=== PATIENT | male | born 2000 | race Caucasian/White ===

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

== ENCOUNTER 2019-03-15 | Emergency (ER) | payer BC ==
[2019-03-15 09:49] LABS: IMMATURE GRANULOCYTES 0.1 % (0.0-5.0); MEAN CORPUSCULAR HGB 28.3 pG CALC (26.0-32.0); MEAN CORPUSCULAR HGB CONC 34.2 g/L CALC (32.0-36.0); NEUT# 3.72 thou/uL (1.82-7.42); RED BLOOD COUNT 5.3 mill/uL (4.70-6.10)
[2019-03-15 09:57] LABS: HEMATOCRIT 43.8 % (39.0-50.0); MEAN CELL VOLUME 82.6 fL CALC (80.0-100.0)
[2019-03-15 10:11] LABS: ALBUMIN 4.4 g/dL (3.2-5.0); ALKALINE PHOSPHATASE 66 u/l (38-126); ANION GAP 13 (6-22 (CALC)); BUN 23 mg/dL (8-21); BUN/CREATININE RATIO 35 (12-20 (CALC)); CARBON DIOXIDE 26 mmol/l (22-30); CHLORIDE 103 mmol/l (95-108); CPK 55 u/l (52-200); CREATININE 0.7 mg/dL (0.7-1.3); GFR > 60 ML/MIN (>=60 (CALC)); GFR FOR AFR.AMER. > 60 ML/MIN (>=60 (CALC)); POTASSIUM 4.4 mmol/l (3.5-5.1); SGOT/AST 16 u/l (17-59); SODIUM 138 mmol/l (137-146); TOTAL PROTEIN 7.2 g/dL (6.3-8.2)
[2019-03-15 10:23] LABS: BILIRUBIN, TOTAL 0.8 mg/dL (0.0-1.4)
== END 2019-03-15 09:43 | DRG 935 ==
DX: T22.211A Burn of second degree of right forearm, initial encounter (principal); T23.291A Burn of second degree of multiple sites of right wrist and hand, initial encounter; T23.262A Burn of second degree of back of left hand, initial encounter; T22.212A Burn of second degree of left forearm, initial encounter; T24.001A Burn of unspecified degree of unspecified site of right lower limb, except ankle and foot, initial encounter; T24.002A Burn of unspecified degree of unspecified site of left lower limb, except ankle and foot, initial encounter; X04.XXXA Exposure to ignition of highly flammable material, initial encounter; Y93.89 Activity, other specified; Y92.009 Unspecified place in unspecified non-institutional (private) residence as the place of occurrence of the external cause